=== PATIENT | female | born 1950 | race Caucasian/White ===

== ENCOUNTER 2022-02-15 16:47 | Emergency (ER) | payer OTHER ==
[~2022-02-15] VITALS: Ht 160 cm; Wt 68.0 kg
[2022-02-15 16:55] VITALS: BP_SYST 126
[2022-02-15 18:00] VITALS: BP_SYST 118
[2022-02-15] MEDS ORDERED: NAPR-688 PO (18:41)
== END 2022-02-15 18:40 | disposition home or self-care (01) ==
LOC: SED 16:47
DX: S60.511A Abrasion of right hand, initial encounter (principal); S50.311A Abrasion of right elbow, initial encounter; M25.551 Pain in right hip; I10 Essential (primary) hypertension; E11.9 Type 2 diabetes mellitus without complications; W01.0XXA Fall on same level from slipping, tripping and stumbling without subsequent striking against object, initial encounter; Y93.89 Activity, other specified; Y92.89 Other specified places as the place of occurrence of the external cause; Y99.8 Other external cause status
CPT/HCPCS: 73502; 99283